=== PATIENT | male | born 1955 | race Caucasian/White ===

== ENCOUNTER 2016-07-28 14:42 | Emergency (ER) | payer BC ==
[~2016-07-28] VITALS: Ht 175.3 cm; Wt 79.4 kg
[2016-07-28 14:42] VITALS: BP 162/103; PULSE 88; RESP 18; TEMP 97; O2SAT 99
--- NOTE | 2016-07-28 14:42 | NUR ---
Time:1440 Dr. Byrd at bedside to examine patient
--- NOTE | 2016-07-28 14:42 | NUR ---
Time: 1438 EKG completed, Dr. Byrd notified of STEMI, # 20 gauge angiocath placed to LAC and RAC. Use of asceptic technique. Opsite placed over site. Blood return noted. Blood for lab drawn from site. Flushed with 10 cc of normal saline. No evidence of infiltration noted. Placed by Shala HANNA
--- NOTE | 2016-07-28 14:42 | NUR ---
TIME: 1436 Pt arrived via private auto to ambulance bay doors c/o chest pain x 30 mins substernal pressure while moving boxes. Pt was immediatly placed on gurney EKG was started, registration called for check in.
--- NOTE | 2016-07-28 14:42 | NUR ---
Dr. Byrd speaking to [facility], [facility] states [facility] did not recieve EKG, per Freddy [place] [facility] has changed their fax number, EKG re-sent
--- NOTE | 2016-07-28 14:46 | NUR ---
Per Freddy MT, [facility] states EKG fax to dark, re-faxed
--- NOTE | 2016-07-28 14:50 | NUR ---
Fax completed and confirmation page obtained
[2016-07-28] MEDS ORDERED: ASPIRIN 81 MG TAB.CHEW ONE (14:54)
--- NOTE | 2016-07-28 14:55 | NUR ---
Per Dr. Byrd, Dr. Mejia said he would call back once EKG was reviewed to initate 911
[2016-07-28] MEDS ORDERED: MORPHINE 2 MG/ML INJ. SYRINGE ONE (14:56)
[2016-07-28 15:00] LABS: BASOPHILS # (AUTO) 0.1 K/uL (0.0-0.2); BASOPHILS % (AUTO) 1.1 % (0.0-2.0); EOSINOPHILS # (AUTO) 0.3 K/uL (0.0-0.4); EOSINOPHILS % (AUTO) 3.4 % (0.0-4.0); HEMATOCRIT 45.1 % (36-54); HEMOGLOBIN 14.9 g/dL (14.0-18.0); LYMPHOCYTES # (AUTO) 2.2 K/uL (1.0-5.5); LYMPHOCYTES % (AUTO) 26.6 % (20.5-51.5); MEAN CORPUSCULAR HEMOGLOBIN 30 pg (27-31); MEAN CORPUSCULAR HGB CONC 33 % (32-36); MEAN CORPUSCULAR VOLUME 92 fL (79.0-98.0); MONOCYTES # (AUTO) 0.8 K/uL (0.0-1.0); MONOCYTES % (AUTO) 9.7 % (1.7-9.3); NEUTROPHILS # (AUTO) 4.8 K/uL (1.8-7.7); NEUTROPHILS % (AUTO) 59.2 % (40.0-70.0); PLATELET COUNT (AUTO) 266 K/uL (130-430); RED BLOOD CELL COUNT(AUTO) 4.92 MIL/uL (4.2-6.2); RED CELL DISTRIBUTION WIDTH 12.6 % (9.0-15.0); WHITE BLOOD COUNT (AUTO) 8.2 K/uL (4.8-10.8)
[2016-07-28] MEDS ORDERED: MORPHINE 2 MG/ML INJ. SYRINGE IVP ONE (15:00)
--- NOTE | 2016-07-28 15:00 | NUR ---
Dr. Byrd speaking with Dr. Mejia, call placed to 911 by [facility]
[2016-07-28] MEDS ORDERED: HEPARIN SODIUM,PORCINE 5000 UNITS/ML VIAL ONE (15:07)
[2016-07-28] MEDS ORDERED: NITROGLYCERIN 0.4 MG TAB.SUBL SL ONE (15:07)
[2016-07-28 15:08] LABS: CALCIUM 8.9 mg/dL (8.4-11.0); CREATININE 0.98 mg/dL (0.55-1.30); POTASSIUM 3.9 mmol/L (3.5-5.1)
--- NOTE | 2016-07-28 15:08 | NUR ---
[facility] SQ [facility] arrived, report given
[2016-07-28 15:11] LABS: INR 0.9 (0.80-1.20); PROTHROMBIN TIME 10.2 SECS (9.5-12.5)
[2016-07-28 15:12] LABS: ALBUMIN 4.1 g/dL (3.4-4.8); TOTAL BILIRUBIN 0.5 mg/dL (0.0-1.0); TOTAL PROTEIN, SERUM 7.5 g/dL (6.4-8.3)
[2016-07-28 15:15] VITALS: BP 152/73; PULSE 75; RESP 19; TEMP 97; O2SAT 99
--- NOTE | 2016-07-28 15:15 | NUR ---
Patient to be transferred to [facility]. Is being transferred due to higher level of care. Receiving facility has accepting physician and available space. ER physician has signed transfer form. Patient or responsible constitution party has agreed to transfer and signed form. Patient belongings inventoried and will be sent with patient. Copy of nursing notes, lab reports, EKG to be sent with patient. Receiving physician is Dr. Mejia and Dr. Marcelino.
== END 2016-07-28 15:15 | disposition short-term general hospital (02) ==
LOC: SED 14:42
DX: I21.3 ST elevation (STEMI) myocardial infarction of unspecified site (principal)
CPT/HCPCS: 36415; 71010; 80053; 80061; 82550; 83880; 84484; 85025; 85379; 85610; 85730; 93005; 96374; 99285; J1644; J2270